=== PATIENT | female | born 1990 | race Two or more races ===

== ENCOUNTER 2017-08-02 19:56 | Emergency (ER) | payer MEDICAID ==
--- NOTE | 2017-08-02 20:55 | RADIOLOGY REPORT (SQ) ---
EXAM DESCRIPTION: HAND RIGHT 3 VIEWS COMPLETED DATE/TIME: 08/02/2017 8:29 pm REASON FOR STUDY: Pain s/p injury COMPARISON: None. EXAM PARAMETERS: NUMBER OF VIEWS: Three views. TECHNIQUE: AP, lateral and oblique radiographic images acquired of the right hand. LIMITATIONS: None. FINDINGS: MINERALIZATION: Normal. BONES: There is a fracture of the neck of the 5th metacarpal with dorsal angulation. JOINTS: No effusions. SOFT TISSUES: No soft tissue swelling. No foreign body. OTHER: No other significant finding. IMPRESSION: 5th metacarpal fracture. TECHNICAL DOCUMENTATION: JOB ID: [id number] [employer]- All Rights Reserved Reading location - IP/workstation name: [email or web address]
[2017-08-02] MEDS ORDERED: HYDROCODONE/ACETAMINOPHEN 5-325 MG TABLET PO ONE (21:01)
[2017-08-02] MEDS ORDERED: IBUPROFEN 600 MG TABLET PO ONE (21:01)
[2017-08-02] MEDS ORDERED: HYDROCODONE/ACETAMINOPHEN 5-325 MG (6 TAB/ER DISP) PO PRN (21:42)
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
[2017-08-02 22:28] VITALS: BP 129/75
== END 2017-08-02 22:27 | disposition home or self-care (01) ==
LOC: ER 19:56
PROC: 2W3EX1Z Immobilization of Right Hand using Splint (ICD-10-PCS; principal; 2017-08-02)
DX: S62.306A Unspecified fracture of fifth metacarpal bone, right hand, initial encounter for closed fracture (principal); W01.198A Fall on same level from slipping, tripping and stumbling with subsequent striking against other object, initial encounter; Z88.0 Allergy status to penicillin
CPT/HCPCS: 99283; 73130; 29125; J3490

== ENCOUNTER 2018-02-22 00:49 | Emergency (ER) | payer MEDICAID, OTHER ==
[2018-02-22] MEDS ORDERED: NALOXONE HCL INJ 2 MG/2 ML DISP.SYRIN IV ONE (01:12)
[2018-02-22] MEDS ORDERED: DIPH/PERTUSS(ACELL)/TETANUS VAC/PF 0.5 ML SYR (>=10YO) IM ONE ×2 (01:45→08:30)
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
[2018-02-22 03:11] LABS: ABSOLUTE BASOPHILS # (AUTO) 0.1 10^3/uL (0.0-0.2); EOSINOPHILS % (AUTO) 0.1 % (0-6); TOTAL CELLS COUNTED % (AUTO) 100 %
[2018-02-22 03:17] LABS: ABSOLUTE LYMPHOCYTES (AUTO) 2.2 10^3/uL (0.5-4.7); BASOPHILS % (AUTO) 0.6 % (0-2); HEMATOCRIT 34.9 % (36.0-47.0); HEMOGLOBIN 12.1 g/dL (12.0-15.5); LYMPHOCYTES % (AUTO) 15.6 % (13-45); MEAN CORPUSCULAR HEMOGLOBIN 30.9 pg (27.0-33.4); MEAN CORPUSCULAR HGB CONC 34.5 g/dL (32.0-36.0); MEAN CORPUSCULAR VOLUME 90 fl (80-97); MONOCYTES % (AUTO) 7.2 % (3-13); PLATELET COUNT 202 10^3/uL (150-450); RED CELL DISTRIBUTION WIDTH 13.9 % (11.5-14.0); SEGMENTED NEUTROPHILS % (AUTO) 76.5 % (42-78); WHITE BLOOD COUNT 14.3 10^3/uL (4.0-10.5)
[2018-02-22 03:25] LABS: ALANINE AMINOTRANSFERASE 677 U/L (9-52); ALBUMIN 3.3 g/dL (3.5-5.0); ALKALINE PHOSPHATASE 91 U/L (38-126); ANION GAP 14 (5-19); ASPARTATE AMINO TRANSFERASE 587 U/L (14-36); BILIRUBIN,DIRECT 0.7 mg/dL (0.0-0.4); BILIRUBIN,TOTAL 1.5 mg/dL (0.2-1.3); BLOOD UREA NITROGEN 10 mg/dL (7-20); CALCIUM 8.9 mg/dL (8.4-10.2); CARBON DIOXIDE 28 mmol/L (22-30); CHLORIDE 100 mmol/L (98-107); GLUCOSE 96 mg/dL (75-110); POTASSIUM 3.6 mmol/L (3.6-5.0); SODIUM 141.6 mmol/L (137-145); TOTAL PROTEIN 6.2 g/dL (6.3-8.2)
[2018-02-22 03:26] LABS: ACETAMINOPHEN < 10 ug/mL (10-30); ALCOHOL < 10 mg/dL (NONE DETECTED)
[2018-02-22] MEDS ORDERED: NORMAL SALINE 1000 ML 1,000 ML IV ONE (05:03)
[2018-02-22] MEDS ORDERED: DEXTROSE 5%-LACTATED RINGERS 1,000 ML IV ONE (07:12)
--- NOTE | 2018-02-22 09:46 | ER Document Report ---
Doctor's Note Notes: 02/22/18 09:39 Medical Rounds: Patient is somnolent, oriented. Falls asleep frequently during interview. Able to sit up during exam and answers questions more easily. She denies any focal pain at this time. Denies any suicidal ideation, homicidal ideation or intentional crash. Will reassess in a few hours. (QUETA BRANDT) 02/22/18 16:30 Patient has increased white blood cell count today compared to yesterday, AST and ALT both remain elevated, ammonia level is less than 8.7. Urinalysis shows small leukocyte esterase, 19 WBCs, 1+ bacteria and only 1 squamous epithelial cell. This will be sent for culture, patient will space started on antibiotics. Patient does continue to have intermittent somnolence yet is able to be awakened to walk to the room but then falls immediately back to sleep when she gets back to the room. Her neurologic exam is nonfocal, I do not think we need to repeat any CT scans today. Patient will continue to be observed and is on 24-hour involuntary hold paperwork. (GWEN CARMONA)
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
[2018-02-22 10:50] LABS: ABSOLUTE LYMPHOCYTES (AUTO) 2.1 10^3/uL (0.5-4.7); ABSOLUTE MONOCYTES (AUTO) 1.2 10^3/uL (0.1-1.4); ABSOLUTE NEUT (AUTO) 13.1 10^3/uL (1.7-8.2); BASOPHILS % (AUTO) 0.3 % (0-2); EOSINOPHILS % (AUTO) 0.2 % (0-6); HEMATOCRIT 39.9 % (36.0-47.0); HEMOGLOBIN 13.8 g/dL (12.0-15.5); LYMPHOCYTES % (AUTO) 12.6 % (13-45); MEAN CORPUSCULAR HGB CONC 34.5 g/dL (32.0-36.0); MEAN CORPUSCULAR VOLUME 90 fl (80-97); MONOCYTES % (AUTO) 7.2 % (3-13); PLATELET COUNT 208 10^3/uL (150-450); RED BLOOD COUNT 4.45 10^6/uL (3.72-5.28); RED CELL DISTRIBUTION WIDTH 13.7 % (11.5-14.0); SEGMENTED NEUTROPHILS % (AUTO) 79.7 % (42-78); TOTAL CELLS COUNTED % (AUTO) 100 %; WHITE BLOOD COUNT 16.4 10^3/uL (4.0-10.5)
[2018-02-22 11:08] LABS: ALANINE AMINOTRANSFERASE 722 U/L (9-52); ALBUMIN 3.4 g/dL (3.5-5.0); ALKALINE PHOSPHATASE 98 U/L (38-126); ANION GAP 15 (5-19); ASPARTATE AMINO TRANSFERASE 598 U/L (14-36); BILIRUBIN,DIRECT 0.6 mg/dL (0.0-0.4); BILIRUBIN,TOTAL 1.2 mg/dL (0.2-1.3); BLOOD UREA NITROGEN 10 mg/dL (7-20); CALCIUM 9.1 mg/dL (8.4-10.2); CARBON DIOXIDE 30 mmol/L (22-30); CHLORIDE 101 mmol/L (98-107); GLUCOSE 77 mg/dL (75-110); POTASSIUM 3.5 mmol/L (3.6-5.0); SODIUM 145.6 mmol/L (137-145); TOTAL PROTEIN 6.6 g/dL (6.3-8.2)
[2018-02-22 15:16] LABS: AMORPHOUS SEDIMENT,URINE TRACE /HPF; APPEARANCE,URINE CLOUDY; BILIRUBIN,URINE NEGATIVE (NEGATIVE); COLOR,URINE AMBER; GLUCOSE, URINE NEGATIVE (NEGATIVE); KETONES,URINE NEGATIVE (NEGATIVE); LEUKOCYTE ESTERASE,URINE SMALL (NEGATIVE); NITRITE,URINE NEGATIVE (NEGATIVE); PROTEIN,URINE 30 mg/dL (NEGATIVE)
[2018-02-22 15:36] LABS: URINE AMPHETAMINES SCREEN NEGATIVE; URINE BARBITURATES SCREEN NEGATIVE; URINE BENZODIAZEPINES SCREEN UNCONFIRMED POSITIVE; URINE COCAINE SCREEN NEGATIVE; URINE MARIJUANA (THC) SCREEN UNCONFIRMED POSITIVE; URINE METHADONE SCREEN NEGATIVE; URINE PHENCYCLIDINE SCREEN NEGATIVE
[2018-02-22] MEDS: DOXYCYCLINE HYCLATE 100 MG TABLET PO SCH (17:08)
[2018-02-22] MEDS ORDERED: BUSPIRONE HCL 10 MG TABLET PO SCH (22:00)
[2018-02-22] MEDS ORDERED: CLONIDINE HCL 0.1 MG TABLET PO SCH (22:00)
[2018-02-23] MEDS ORDERED: BUSPIRONE HCL 10 MG TABLET PO SCH ×2 (08:00)
[2018-02-23] MEDS: DOXYCYCLINE HYCLATE 100 MG TABLET PO SCH (09:25)
[2018-02-23] MEDS ORDERED: VENLAFAXINE HCL 37.5 MG CAP.SR.24H PO SCH (10:00)
[2018-02-23 10:11] LABS: ABSOLUTE LYMPHOCYTES (AUTO) 2.3 10^3/uL (0.5-4.7); ABSOLUTE MONOCYTES (AUTO) 1.2 10^3/uL (0.1-1.4); ABSOLUTE NEUT (AUTO) 9.2 10^3/uL (1.7-8.2); BASOPHILS % (AUTO) 0.3 % (0-2); EOSINOPHILS % (AUTO) 0.2 % (0-6); HEMATOCRIT 36.5 % (36.0-47.0); HEMOGLOBIN 12.2 g/dL (12.0-15.5); LYMPHOCYTES % (AUTO) 18.2 % (13-45); MEAN CORPUSCULAR HEMOGLOBIN 30.2 pg (27.0-33.4); MEAN CORPUSCULAR HGB CONC 33.5 g/dL (32.0-36.0); MEAN CORPUSCULAR VOLUME 90 fl (80-97); MONOCYTES % (AUTO) 9.6 % (3-13); PLATELET COUNT 220 10^3/uL (150-450); RED BLOOD COUNT 4.04 10^6/uL (3.72-5.28); SEGMENTED NEUTROPHILS % (AUTO) 71.7 % (42-78); TOTAL CELLS COUNTED % (AUTO) 100 %; WHITE BLOOD COUNT 12.8 10^3/uL (4.0-10.5)
[2018-02-23 10:32] LABS: ALANINE AMINOTRANSFERASE 627 U/L (9-52); ALBUMIN 3.2 g/dL (3.5-5.0); ALKALINE PHOSPHATASE 84 U/L (38-126); ANION GAP 13 (5-19); ASPARTATE AMINO TRANSFERASE 377 U/L (14-36); BILIRUBIN,DIRECT 0.4 mg/dL (0.0-0.4); BLOOD UREA NITROGEN 8 mg/dL (7-20); CALCIUM 8.8 mg/dL (8.4-10.2); CARBON DIOXIDE 27 mmol/L (22-30); CHLORIDE 105 mmol/L (98-107); GLUCOSE 65 mg/dL (75-110); SODIUM 144.9 mmol/L (137-145); TOTAL PROTEIN 6.4 g/dL (6.3-8.2)
[2018-02-23 10:38] LABS: HEPATITIS A AB IGM Negative (Negative); HEPATITIS B CORE AB IGM Negative (Negative); HEPATITS B SURFACE ANTIGEN Negative (Negative)
[2018-02-23 11:27] LABS: HEPATITIS C VIRUS ANTIBODY >11.0 s/co ratio (0.0-0.9)
[2018-02-23 14:54] LABS: APPEARANCE,URINE CLEAR; BILIRUBIN,URINE NEGATIVE (NEGATIVE); COLOR,URINE YELLOW; GLUCOSE, URINE NEGATIVE (NEGATIVE); KETONES,URINE NEGATIVE (NEGATIVE); LEUKOCYTE ESTERASE,URINE MODERATE (NEGATIVE); NITRITE,URINE NEGATIVE (NEGATIVE); PROTEIN,URINE 30 mg/dL (NEGATIVE)
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
[2018-02-23 16:27] VITALS: BP 110/73
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
== END 2018-02-23 16:27 | disposition home or self-care (01) ==
LOC: ER 00:49
DX: S09.90XA Unspecified injury of head, initial encounter (principal); S16.1XXA Strain of muscle, fascia and tendon at neck level, initial encounter; S61.432A Puncture wound without foreign body of left hand, initial encounter; T40.604A Poisoning by unspecified narcotics, undetermined, initial encounter; S40.812A Abrasion of left upper arm, initial encounter; S40.811A Abrasion of right upper arm, initial encounter; S80.812A Abrasion, left lower leg, initial encounter; S80.811A Abrasion, right lower leg, initial encounter; N30.00 Acute cystitis without hematuria; B17.10 Acute hepatitis C without hepatic coma; F43.10 Post-traumatic stress disorder, unspecified; R41.82 Altered mental status, unspecified; V87.7XXA Person injured in collision between other specified motor vehicles (traffic), initial encounter
CPT/HCPCS: 99285; 96361; 90471; 96374; 36415; 87086; 82962; 80307 ×3; 82140; 85025; 81025; 87088; 80053; 81001; 87186; 80074; 73120; 70450; 72125; 90715; L0120; J3490 ×6; J2310; J7030

== ENCOUNTER → 2018-03-18 | Outpatient (CLI) | payer MEDICAID ==
[2018-03-18 14:20] LABS: ABSOLUTE EOSINOPHILS # (AUTO) 0.1 10^3/uL (0.0-0.6); ABSOLUTE LYMPHOCYTES (AUTO) 1.6 10^3/uL (0.5-4.7); ABSOLUTE MONOCYTES (AUTO) 0.4 10^3/uL (0.1-1.4); ABSOLUTE NEUT (AUTO) 4.1 10^3/uL (1.7-8.2); BASOPHILS % (AUTO) 0.4 % (0-2); EOSINOPHILS % (AUTO) 1.4 % (0-6); HEMATOCRIT 40.6 % (36.0-47.0); HEMOGLOBIN 13.7 g/dL (12.0-15.5); LYMPHOCYTES % (AUTO) 26.1 % (13-45); MEAN CORPUSCULAR HEMOGLOBIN 30.2 pg (27.0-33.4); MEAN CORPUSCULAR HGB CONC 33.7 g/dL (32.0-36.0); MEAN CORPUSCULAR VOLUME 90 fl (80-97); MONOCYTES % (AUTO) 6.4 % (3-13); PLATELET COUNT 230 10^3/uL (150-450); RED BLOOD COUNT 4.52 10^6/uL (3.72-5.28); RED CELL DISTRIBUTION WIDTH 15.2 % (11.5-14.0); SEGMENTED NEUTROPHILS % (AUTO) 65.7 % (42-78); TOTAL CELLS COUNTED % (AUTO) 100 %; WHITE BLOOD COUNT 6.2 10^3/uL (4.0-10.5)
[2018-03-18 14:26] LABS: INTERNATIONAL RATION (INR) 0.91; PROTHROMBIN TIME 12.7 SEC (11.4-15.4)
[2018-03-22 08:41] LABS: HCV FIBROSURE ALT P5P 291 IU/L (0-40); HCV FIBROSURE GGT 64 IU/L (0-60); HCV FIBROSURE HAPTOGLOBIN 140 mg/dL (34-200); NECROINFLAM ACTIVITY GRADE A3-Severe activity (.); NECROINFLAMM ACTIVITY SCORE 0.85 (0.00-0.17)
== END ==
LOC: OD 13:12
PROVIDERS: ATTEND Internal Medicine Gastroenterology
DX: B18.2 Chronic viral hepatitis C (principal)
CPT/HCPCS: 36415; 82172; 82247; 82977; 83010; 83883; 84460; 85025; 85610; 86701

== ENCOUNTER 2018-03-21 11:03 | Day surgery (SDC) | payer MEDICAID ==
[~2018-03-21 11:03] MED LIST: PROPOFOL INJ 200 MG/20 ML VIAL IV ONE
[2018-03-21] MEDS ORDERED: SIMETHICONE 80 MG TAB.CHEW ONE (11:59)
[2018-03-21 12:58] VITALS: BP 120/78
--- NOTE | 2018-03-21 13:34 | Operative Report ---
Operative Report DATE OF SURGERY: 03/21/18 Operative Report: The risks, benefits and alternatives of the procedure including the risk of bleeding, perforation requiring surgery are explained to the patient in detail and informed consent was obtained. Patient was brought back to the endoscopy suite and placed in the left, lateral decubital position. Timeout was called. Propofol medication is administered. A rectal examination is done which did not reveal any masses, tears or fissures. An Olympus videoscope was introduced into the patient's rectum. The scope was then carefully advanced all the way to the cecum. The cecum was identified by the usual anatomical landmarks of the ileocecal valve as well as the appendiceal office. Photodocumentation was obtained. The scope was then sequentially pulled back via the various segments of the colon including the ascending colon, hepatic flexure, transverse colon, splenic flexure, descending colon and finally into the rectosigmoid portions of the colon. Retroflexion maneuver was performed. The risks benefits and alternatives of the procedure explained to the patient in detail and informed consent is obtained.A GIF Olympus video scope was inserted into the patient's mouth and hypopharynx, the esophagus is identified intubated and insufflated, the scope was then advanced through the esophagus stomach and duodenum, retroflexion maneuver is done the esophagus stomach and first and second portions of the duodenum examined PREOPERATIVE DIAGNOSIS: Change in bowel habits. Epigastric pain rule out peptic ulcer disease POSTOPERATIVE DIAGNOSIS: Terminal ileitis status post biopsy rule out Crohn's disease. Esophagitis versus Sanchez's esophagus status post biopsy for confirmation. Gastritis status post biopsy rule out Helicobacter pylori OPERATION: Colonoscopy with biopsy. EGD with biopsy SURGEON: FUNMI WHALEY ANESTHESIA: LMAC TISSUE REMOVED OR ALTERED: As noted above. COMPLICATIONS: None. ESTIMATED BLOOD LOSS: None. INTRAOPERATIVE FINDINGS: As noted above. PROCEDURE: Patient tolerated the procedure well. No immediate postprocedure complications are noted. Patient discharged in good condition. Discharge date 03/21/2018. Discharge diet: Regular. Discharge activity: Regular. 2-3-week follow-up to discuss findings. Patient is instructed to call the office or proceed to the emergency room should there be any further problems or questions. Wait on the pathology.
== END 2018-03-21 12:45 | disposition home or self-care (01) ==
LOC: END 11:03
PROVIDERS: ATTEND Internal Medicine Gastroenterology
DX: B18.2 Chronic viral hepatitis C (principal); R10.13 Epigastric pain; R19.4 Change in bowel habit; Z72.0 Tobacco use
CPT/HCPCS: 43239; 45380; 88305 ×2; 88313 ×2; J2704; 813

== ENCOUNTER 2018-04-21 11:11 | Day surgery (SDC) | payer MEDICAID ==
[2018-04-21] MEDS ORDERED: PROPOFOL INJ 200 MG/20 ML VIAL IV ONE (13:20)
--- NOTE | 2018-04-21 14:19 | Operative Report ---
Operative Report DATE OF SURGERY: 04/21/18 Operative Report: The risks benefits and alternatives of the procedure explained to the patient in detail and informed consent is obtained .A GIF Olympus video scope was inserted into the patient's mouth and hypopharynx ,the esophagus is identified intubated and insufflated ,the scope was then advanced through the esophagus stomach and duodenum, retroflexion maneuver is done, the esophagus stomach and first and second portions of the duodenum examined. PREOPERATIVE DIAGNOSIS: Sanchez's esophagus POSTOPERATIVE DIAGNOSIS: Sanchez's esophagus status post radiofrequency ablation OPERATION: EGD with the patient SURGEON: FUNMI WHALEY ANESTHESIA: LMAC TISSUE REMOVED OR ALTERED: None. COMPLICATIONS: None. ESTIMATED BLOOD LOSS: None. INTRAOPERATIVE FINDINGS: As noted above. PROCEDURE: Patient tolerated the procedure well. No immediate postprocedure complications are noted. Patient discharged in good condition. Discharge date 04/21/2018. Discharge diet: Regular. Discharge activity: Regular. 2-3-week follow-up to discuss findings. Patient is instructed to call the office or proceed to the emergency room should there be any further problems or questions.
[2018-04-21] MEDS ORDERED: DEXTROSE 5%-1/2 NORMAL SALINE 1,000 ML IV PRN (14:53)
[2018-04-21] MEDS ORDERED: FENTANYL CITRATE INJ/PF 100 MCG/2 ML AMPUL IV PRN ×3 (15:03)
[2018-04-21] MEDS ORDERED: PROMETHAZINE HCL INJ 25 MG/1 ML VIAL IV PRN (15:03)
[2018-04-21] MEDS ORDERED: SIMETHICONE 80 MG TAB.CHEW PO PRN (15:15)
[2018-04-21] MEDS ORDERED: ACETAMINOPHEN 325 MG TABLET PO PRN (15:15)
[2018-04-21] MEDS ORDERED: PROMETHAZINE HCL INJ 25 MG/1 ML VIAL INJ PRN (15:15)
[2018-04-21 16:25] VITALS: BP 108/77
== END 2018-04-21 15:40 | disposition home or self-care (01) ==
LOC: OROUT 11:11
PROVIDERS: ATTEND Internal Medicine Gastroenterology
DX: K22.719 Barrett's esophagus with dysplasia, unspecified (principal); E78.5 Hyperlipidemia, unspecified; J45.909 Unspecified asthma, uncomplicated; F17.210 Nicotine dependence, cigarettes, uncomplicated; B18.2 Chronic viral hepatitis C; Z79.899 Other long term (current) drug therapy
CPT/HCPCS: 43270; 81025; J2704; 731

== ENCOUNTER 2020-02-14 14:39 | Emergency (ER) | payer SELFPAY ==
--- NOTE | 2020-02-14 15:02 | ER Document Report ---
ED Medical Screen (RME) - General Chief Complaint: Medical Complaint Stated Complaint: MEDICAL COMPLAINT Time Seen by Provider: 02/14/20 14:43 Primary Care Provider: RETA MESSER MD [Primary Care Provider] - Follow up as needed TRAVEL OUTSIDE OF THE [place] IN LAST 30 DAYS: No - HPI Notes: 02/14/20 14:56 Patient is a 29-year-old female presenting with suicidal ideation with a plan. Her plan is to cut her wrists, she has cut her wrists before as recently as last week. She is currently homeless and last night slept in a empty building behind a yarsani. States that she feels hopeless, feels as if people are following her and that people in crowds no private things about her life and are talking about her. She uses meth and heroin, last used heroin this morning. Endorses homicidal ideation towards her boyfriend without plan. Patient is also carrying a clifford screw on her person, which she willingly gives over to the provider. She states she may have tried to use this to hurt herself. It was confiscated from the patient. Denies visual and auditory hallucinations. last pyschiatric hospitalization was in 2009. Last SI attempt in 2013 when she overdosed on Xanax. I performed a brief medical screening exam on the patient determined that the patient needs further evaluation and management by main side provider. I have placed initial orders to help expedite care. - Related Data Allergies/Adverse Reactions: amoxicillin trihydrate [From Augmentin] Allergy (Intermediate, Verified 02/14/20 14:44) VOMITING Potassium Clavulanate * [From Augmentin] Allergy (Intermediate, Verified 02/14/20 14:44) VOMITING cefazolin sodium [From Ancef] Adverse Reaction (Mild, Verified 02/14/20 14:44) VOMITING Past Medical History - Past Medical History Cardiac Medical History: Denies: Hx Coronary Artery Disease, Hx Heart Attack, Hx Hypertension, Hx Pulmonary Embolism, Hx Heart Murmur Pulmonary Medical History: Denies: Hx Asthma, Hx Bronchitis, Hx COPD, Hx Pneumonia, Hx Sleep Apnea, Hx Tuberculosis Neurological Medical History: Denies: Hx Cerebrovascular Accident, Hx Seizures Endocrine Medical History: Denies: Hx Hyperthyroidism, Hx Hypothyroidism Renal/ Medical History: Denies: Hx Kidney Stones, Hx Ovarian Cysts, Hx Peritoneal Dialysis, Hx Pelvic Inflammatory Disease Malignancy Medical History: Denies: Hx Breast Cancer, Hx Cervical Cancer, Hx Ovarian Cancer GI Medical History: Reports: Hx Gastroesophageal Reflux Disease - with . Denies: Hx Hiatal Hernia, Hx Ulcer Musculoskeltal Medical History: Denies Hx Arthritis, Denies Hx Fibromyalgia Psychiatric Medical History: Reports: Hx Depression, Hx Post Traumatic Stress Disorder - witnessed brother by gunshot Denies: Hx Bipolar Disorder, Hx Schizophrenia Traumatic Medical History: Denies: Hx Fractures Infectious Medical History: Denies: Hx HIV Past Surgical History: Reports: Hx Section - x2, Hx Orthopedic Surgery - left knee surgery x 2, right knee surgery x 1 - Immunizations Hx Diphtheria, Pertussis, Tetanus Vaccination: Yes - 07/15/13 Physical Exam - Vital signs Vitals: Temp Pulse Resp BP Pulse Ox 97.7 F 89 16 123/70 99 02/14/20 14:44 02/14/20 14:44 02/14/20 14:44 02/14/20 14:44 02/14/20 14:44 Course - Vital Signs Vital signs: Temp Pulse Resp BP Pulse Ox 97.7 F 89 16 123/70 99 02/14/20 14:44 02/14/20 14:44 02/14/20 14:44 02/14/20 14:44 02/14/20 14:44 Doctor's Discharge - Discharge Referrals: RETA MESSER MD [Primary Care Provider] - Follow up as needed
--- NOTE | 2020-02-14 15:50 | ER Document Report ---
ED General - General Chief Complaint: Psych Problem Stated Complaint: MEDICAL COMPLAINT Time Seen by Provider: 02/14/20 14:43 Primary Care Provider: RETA MESSER MD [Primary Care Provider] - Follow up as needed Notes: 29-year-old female presents with suicide lesion. When asked if she has a plan she says "if I do not get help I will." She has long history depression has been psychologically hospitalized before, and has been using meth heroin and alcohol recently. No delusions hallucinations withdrawal symptoms or homicidal ideation. TRAVEL OUTSIDE OF THE [place] IN LAST 30 DAYS: No - Related Data Allergies/Adverse Reactions: amoxicillin trihydrate [From Augmentin] Allergy (Intermediate, Verified 02/14/20 14:44) VOMITING Potassium Clavulanate * [From Augmentin] Allergy (Intermediate, Verified 02/14/20 14:44) VOMITING cefazolin sodium [From Ancef] Adverse Reaction (Mild, Verified 02/14/20 14:44) VOMITING Past Medical History - General Information source: Patient - Social History Smoking Status: Current Every Day Smoker Frequency of alcohol use: Heavy Drug Abuse: Heroin, Methamphetamine Family History: Reviewed & Not Pertinent Patient has homicidal ideation: Yes - Past Medical History Cardiac Medical History: Denies: Hx Coronary Artery Disease, Hx Heart Attack, Hx Hypertension, Hx Pulmonary Embolism, Hx Heart Murmur Pulmonary Medical History: Denies: Hx Asthma, Hx Bronchitis, Hx COPD, Hx Pneumonia, Hx Sleep Apnea, Hx Tuberculosis Neurological Medical History: Denies: Hx Cerebrovascular Accident, Hx Seizures Endocrine Medical History: Denies: Hx Hyperthyroidism, Hx Hypothyroidism Renal/ Medical History: Denies: Hx Kidney Stones, Hx Ovarian Cysts, Hx Peritoneal Dialysis, Hx Pelvic Inflammatory Disease Malignancy Medical History: Denies: Hx Breast Cancer, Hx Cervical Cancer, Hx Ovarian Cancer GI Medical History: Reports: Hx Gastroesophageal Reflux Disease - with . Denies: Hx Hiatal Hernia, Hx Ulcer Musculoskeletal Medical History: Denies Hx Arthritis, Denies Hx Fibromyalgia Psychiatric Medical History: Reports: Hx Depression, Hx Post Traumatic Stress Disorder - witnessed brother by gunshot Denies: Hx Bipolar Disorder, Hx Schizophrenia Traumatic Medical History: Denies: Hx Fractures Infectious Medical History: Denies: Hx HIV Past Surgical History: Reports: Hx Section - x2, Hx Orthopedic Surgery - left knee surgery x 2, right knee surgery x 1 - Immunizations Hx Diphtheria, Pertussis, Tetanus Vaccination: Yes - 07/15/13 Review of Systems - Review of Systems Notes: REVIEW OF SYSTEMS GEN: Denies fever, chills, weight loss ENT: Denies sore throat, nasal discharge, ear pain EYES: Denies blurry vision, eye pain, discharge CV: Denies chest pain, palpitations, edema RESP: Denies cough, shortness of breath, wheezing GI: Denies abdominal pain, nausea, vomiting, diarrhea MSK: Denies joint pain/swelling, edema, SKIN: Denies rash, skin lesions LYMPH: Denies swollen glands/lymph nodes NEURO: Denies headache, focal weakness or numbness, dizziness PSYCH: Depressed mood and substance abuse PHYSICAL EXAMINATION General: No acute distress, well-nourished Head: Atraumatic, normocephalic ENT: Mouth normal, oropharynx moist, no exudates or tonsillar enlargement Eyes: Conjunctiva normal, pupils equal, lids normal Neck: No JVD, supple, no guarding CVS: Normal rate, regular rhythm, no murmurs Resp: No resp distress, equal and normal breath sounds bilaterally GI: Nondistended, soft, no tenderness to palpation, no rebound or guarding Ext: No deformities, no edema, normal range of motion in upper and lower ext Back: No CVA or midline TTP Skin: No rash, warm Lymphatic: No lymphadeopathy noted Neuro: Awake, alert. Face symmetric. GCS 15. Psychiatric: Flat affect Physical Exam - Vital signs Vitals: Temp Pulse Resp BP Pulse Ox 97.7 F 89 16 123/70 99 02/14/20 14:44 02/14/20 14:44 02/14/20 14:44 02/14/20 14:44 02/14/20 14:44 Course - Re-evaluation Re-evalutation: 02/14/20 15:49 Depression and suicidal ideation without plan voluntary Medically cleared based on history and physical exam We will follow up labs but unlikely to show significant pathology IVC order set already placed Calm and cooperative with no signs of withdrawal at this point Defer to mental health for further evaluation including IVC transfer etc. - Vital Signs Vital signs: Temp Pulse Resp BP Pulse Ox 97.7 F 89 16 123/70 99 02/14/20 14:44 02/14/20 14:44 02/14/20 14:44 02/14/20 14:44 02/14/20 14:44 Discharge - Discharge Clinical Impression: Depressed mood Condition: Good Disposition: PSYCH HOSP/UNIT Referrals: RETA MESSER MD [Primary Care Provider] - Follow up as needed
[2020-02-14 16:05] LABS: ABSOLUTE LYMPHOCYTES (AUTO) 2.5 10^3/uL (0.5-4.7); ABSOLUTE MONOCYTES (AUTO) 0.6 10^3/uL (0.1-1.4); ABSOLUTE NEUT (AUTO) 5.2 10^3/uL (1.7-8.2); BASOPHILS % (AUTO) 0.4 % (0-2); EOSINOPHILS % (AUTO) 0.4 % (0-6); HEMATOCRIT 43.6 % (36.0-47.0); HEMOGLOBIN 14.8 g/dL (12.0-15.5); LYMPHOCYTES % (AUTO) 30.1 % (13-45); MEAN CORPUSCULAR HEMOGLOBIN 30.1 pg (27.0-33.4); MEAN CORPUSCULAR HGB CONC 33.9 g/dL (32.0-36.0); MEAN CORPUSCULAR VOLUME 89 fl (80-97); MONOCYTES % (AUTO) 6.7 % (3-13); PLATELET COUNT 298 10^3/uL (150-450); RED BLOOD COUNT 4.91 10^6/uL (3.72-5.28); SEGMENTED NEUTROPHILS % (AUTO) 62.4 % (42-78); TOTAL CELLS COUNTED % (AUTO) 100 %; WHITE BLOOD COUNT 8.3 10^3/uL (4.0-10.5)
[2020-02-14 16:24] LABS: ALBUMIN 4.5 g/dL (3.5-5.0); ALKALINE PHOSPHATASE 83 U/L (38-126); ANION GAP 13 (5-19); ASPARTATE AMINO TRANSFERASE 26 U/L (14-36); BILIRUBIN,DIRECT 0.2 mg/dL (0.0-0.4); BILIRUBIN,TOTAL 0.8 mg/dL (0.2-1.3); BLOOD UREA NITROGEN 12 mg/dL (7-20); CALCIUM 9.9 mg/dL (8.4-10.2); CARBON DIOXIDE 27 mmol/L (22-30); CHLORIDE 101 mmol/L (98-107); GLUCOSE 76 mg/dL (75-110); POTASSIUM 3.8 mmol/L (3.6-5.0); TOTAL PROTEIN 7.6 g/dL (6.3-8.2)
[2020-02-14 16:26] LABS: ACETAMINOPHEN < 10 ug/mL (10-30); ALCOHOL < 10 mg/dL (NONE DETECTED); SALICYLATE < 1.0 mg/dL (2.0-20.0)
[2020-02-14 16:32] LABS: URINE BARBITURATES SCREEN NEGATIVE; URINE BENZODIAZEPINES SCREEN NEGATIVE; URINE COCAINE SCREEN NEGATIVE; URINE METHADONE SCREEN NEGATIVE; URINE PHENCYCLIDINE SCREEN NEGATIVE
[2020-02-14 16:56] LABS: URINE MARIJUANA (THC) SCREEN UNCONFIRMED POSITIVE
[2020-02-14] MEDS ORDERED: CHLORPROMAZINE HCL 50 MG TABLET PO PRN (19:14)
[2020-02-14] MEDS ORDERED: BENZTROPINE MESYLATE 1 MG TABLET PO PRN (19:15)
--- NOTE | 2020-02-14 19:43 | PSYCHOLOGICAL NOTE ---
Psych Note - Psych Note Date seen by psych provider: 02/14/20 Time seen by psych provider: 17:34 - Evaluation with patient from [id number]. Psych Note: Patient is a 29 year old female who presented to the emergency department today late afternoon via privately owned vehicle for suicidal ideation with thoughts of hurting herself, having history of self injury via cutting self with razors or scissors (old scars on wrists noted by medical)and polysubstance use. She had reported living out of her car the last few months, it broke down, getting taken advantage of by people, feeling hopeless but not wanting to feel that way, slept in an abandoned building a couple days ago, tried going to her mother's locally but having burnt that bridge, having homicidal ideation towards one male being her boyfriend that just broke up with her after 8 years for being "too much d taiwo." She also reported hearing and seeing things and feeling like someone is following her. Urine drug screen was positive for opiates, methamphetamine, and cannabis. Patient denied current suicidal ideation and admitted to history of self injury via cutting. She admitted to long time use of Intravenous heroin and methamphetamine use, with most recent use this morning. She reported she tried t o overdose twice on pills in 2018 but denied being hospitalized. She reported "I want help." She acknowledged she had been to [facility] last year and "it was helpful." She also reported a history of Bipolar and thinks the last medication she was prescribed was Latuda. She admitted "it has been awhile since I have been on medication." She again stated "I want help getting clean and getting back on medication for Bipolar." Patient was alert and oriented to self, person, place, time and situation. Mood was depressed with flat affect. She denied current suicidal and homicidal ideation, admitted to having thoughts previously, admitted to two previous overdoses, and admitted to history of self injury via cutting. Patient did not appear to be responding to internal stimuli as evidenced by fair eye contact and answering questions appropriately when addressed. Thought processes were linear. Conversational speech was within normal slowed in rate and soft in tone. Intellectual abilities are estimated to be average. Insight, judgment and impulse control were fair as evidenced by seeking help and not taking any kind of action via to harm self or engaging in self harm behaviors. Clinical Presentation: Passive Suicidal Ideation, thoughts, no specific plan, no action Polysubstance Use Opioids Methamphetamine Cannabis Relationship Discord History of Bipolar Noncompliance with medication and treatment Medication recommendations made by the psychiatric medication provider Dr. Forrest PEARSON, includes: Add Thorazine 50MG every 6 hours as needed for anxiety/agitation Add Cogentin 1MG to be given if administered 100MG of Thorazine or more a day to curb tremor side effects often associated with antipsychotic medications Impression/Plan: Recommendation for voluntary hold. [facility] ([facility]) full tonight and expecting discharges tomorrow. She stated she w anted to go to [facility] and noted she had been there a year ago with success. Patient open and honest about polysubstance use, history of Bipolar disorder, noncompliance with medication and treatment, and passive suicidal ideation without plan or action. She initiated coming to the hospital to seek help. Plan is to link her voluntarily to [facility] tomorrow. Consulted [facility] Dr. Hidalgo regarding the management and care of patient. ED Physician in agreement with recommendations. Case Management: At 1741 called [facility]. Spoke to a male. No bed availability currently but expecting discharges tomorrow afternoon.
[2020-02-15 12:35] VITALS: BP 126/75
--- NOTE | 2020-02-15 14:43 | ER Document Report ---
Doctor's Note Notes: 02/15/20 14:43 Patient was noted to be positive for opiates methamphetamine and marijuana. She has been evaluated by the psychiatric team and is agreeable to go to [place] for treatment for substance abuse.
--- NOTE | 2020-02-17 16:49 | PSYCHOLOGICAL NOTE ---
Psych Note - Psych Note Date seen by psych provider: 02/15/20 Time seen by psych provider: 11:00 - Check in with patient at 1100. Psych Note: Patient is a 29 year old female in the emergency department as a voluntary hold for passive suicidal ideation and polysubstance use with desire to go to [facility] however they were full last evening and expecting discharges this afternoon. Patient reported she still wanted to go to [facility]. She gave verbal consent to provide voluntary linkage. Her mood was more euthymic with congruent affect. She stated she had slept and felt a little better. The as needed medications never had to be utilized. Clinical Presentation: Passive Suicidal Ideation, thoughts, no specific plan, no action Polysubstance Use Opioids Methamphetamine Cannabis Relationship Discord History of Bipolar Noncompliance with medication and treatment Impression/Plan: Recommendation to move forward with voluntary linkage to [facility] for dual diagnosis treatment. Patient had passive suicidal ideation with thoughts but no plan or action. She admitted to intravenous drug use (heroin and methamphetamine) and history of Bipolar with it being untreated for awhile now. She continued to want help and to go to [place]. Mood was improved as well to being more euthymic. Consulted with Dr. Hidalgo regarding the management and care of patient. ED Physician in agreement with recommendations. Case Management: At [address] [facility]. Spoke to Tasneem. She stated still no bed availability but expecting discharges around 1400 so fax any paperwork for referral. Faxed lab work. At [address] [facility] called. She confirmed they did have patient last year, have reserved a bed so patient can come over any time for screening, and there should be no reason they wouldn't accept her. This clinician and trainee walked to stop sign and met [facility] female worker for direct hand off.
== END 2020-02-15 16:20 | disposition home or self-care (01) ==
LOC: ER 14:39
DX: R45.851 Suicidal ideations (principal); F32.89 Other specified depressive episodes; F11.10 Opioid abuse, uncomplicated; F15.10 Other stimulant abuse, uncomplicated; F12.10 Cannabis abuse, uncomplicated; Z91.14 Patient's other noncompliance with medication regimen
CPT/HCPCS: 36415; 80053; 80307; 85025; 99285